=== PATIENT | male | born 1985 | race Caucasian/White ===

== ENCOUNTER 2024-02-02 12:34 | Emergency (ER) | payer BC ==
[2024-02-02 12:59] VITALS: BP 143/89; PULSE 75; RESP 20; TEMP 98.2; BMI 23.0
== END 2024-02-02 14:56 | disposition home or self-care (01) ==
LOC: FER 12:34
PROC: 2W3RX1Z Immobilization of Left Lower Leg using Splint (ICD-10-PCS; principal; 2024-02-02)
DX: S82.831A Other fracture of upper and lower end of right fibula, initial encounter for closed fracture (principal); W16.722A Jumping or diving from boat striking bottom causing other injury, initial encounter
CPT/HCPCS: 73562-TC-RT-FY; 73590-TC-RT-FY; 73610-TC-RT-FY; 73630-TC-RT-FY; 99284-25